=== PATIENT | male | born 1975 | race Caucasian/White ===

== ENCOUNTER → 2019-08-16 | Outpatient (CLI) | payer OTHER ==
[~2019-08-16] MED LIST: ALBU2.5V8 IH; COLC0.6T34 PO; NAPR-514 PO
--- NOTE | 2019-08-16 11:39 | KCIC ---
BRAIN W/O CONTRAST Date: 08/16/2019 10:15 AM Indication: Lightheaded, history of TIA Comparison: None. Technique: Multiplanar multisequence MRI of the brain was performed without intravenous contrast using the standard protocol. Findings: No acute infarct. No acute or chronic hemorrhage. The ventricles are normal in size and configuration without hydrocephalus. The scalp and calvarium are normal. The pituitary and sella are normal. No Chiari malformation. The visualized upper cervical spine is normal. The visualized orbits and globes are normal. The visualized paranasal sinuses are clear. The mastoid air cells are clear. Normal flow voids within the vertebral, basilar, and internal carotid arteries indicating patency. IMPRESSION: No acute intracranial process. Electronically signed by: Jerome Kingsley MD (08/16/2019 11:36 AM) [id number]
== END | disposition home or self-care (01) ==
LOC: KCIC MRI 09:36
PROVIDERS: ATTEND Psychiatry & Neurology Neurology with Special Qualifications in Child Neurology
DX: R42 Dizziness and giddiness (principal); Z86.73 Personal history of transient ischemic attack (TIA), and cerebral infarction without residual deficits
CPT/HCPCS: 70551

== ENCOUNTER → 2020-03-06 | Outpatient (CLI) | payer OTHER ==
--- NOTE | 2020-03-06 16:16 | RAD ---
Examination: Ultrasound left lateral thigh HISTORY: History of mass left lateral thigh COMPARISON: None available Findings/ impression: There is a 2.0 x 1.8 x 0.4 cm isoechoic focus identified in the soft tissue of the left lateral thigh likely a lipoma. Electronically signed by: Willie Greenfield MD (03/06/2020 4:13 PM) [id number]
== END ==
LOC: US 15:02
PROVIDERS: ATTEND Family Medicine
DX: R22.42 Localized swelling, mass and lump, left lower limb (principal)
CPT/HCPCS: 76881

== ENCOUNTER 2020-06-19 22:29 | Emergency (ER) | payer OTHER ==
[~2020-06-19] VITALS: Ht 185.4 cm; Wt 127.3 kg
--- NOTE | 2020-06-19 22:58 | PHYS DOC ---
Past Medical History Past Medical History: TIA Alcohol Use: Occasionally General Adult EDM: Chief Complaint: DIZZY/LIGHT HEADED HPI: HPI: Patient is a 45 year old male with a past medical history of TIA June 2019 presents for dizziness and heart palpitations. He states that around 9 PM he started to feel his heart racing, pulsing in his hands, lightheadedness, and a headache, so he took his blood pressure. He does not take his blood pressure every day. His blood pressure today was 170/102. He took half with Bystolic that he had left over from last year. He waited 30 minutes and recheck his blood pressure. He was still feeling lightheaded and had a feeling of his heart racing, his blood pressure was still elevated at 160/91 so he presented to the emergency department. He states that he currently is lightheaded, but has no other symptoms. He denies any vision changes, chest pain, shortness of breath, numbness or tingling anywhere. He states he had a full cardiac work-up and scans done in June 2019 when he was diagnosed with a TIA and everything was clear at that time. He saw his PCP 3 weeks ago and his blood pressure at that time was 120/70. Review of Systems: Review of Systems: Constitutional: Denies fever or chills. [] Eyes: Denies change in visual acuity. [] HENT: Denies nasal congestion or sore throat. [] Respiratory: Denies cough or shortness of breath. [] Cardiovascular: Positive palpitations, Denies chest pain or edema. [] GI: Denies abdominal pain, nausea, vomiting, bloody stools or diarrhea. [] : Denies dysuria. [] Musculoskeletal: Denies back pain or joint pain. [] Integument: Denies rash. [] Neurologic: Denies headache, focal weakness or sensory changes. Positive lightheadedness [] Endocrine: Denies polyuria or polydipsia. [] Lymphatic: Denies swollen glands. [] Psychiatric: Denies depression or anxiety. [] Heart Score: Risk Factors: Risk Factors: DM, Current or recent (<one month) smoker, HTN, HLP, family history of CAD, obesity. Risk Scores: Score 0 - 3: 2.5% MACE over next 6 weeks - Discharge Home Score 4 - 6: 20.3% MACE over next 6 weeks - Admit for Clinical Observation Score 7 - 10: 72.7% MACE over next 6 weeks - Early Invasive Strategies Allergies: Allergies: Allergies Coded Allergies Type Severity Reaction Last Updated Verified hydrocodone Allergy Severe Shortness of Air 09/09/14 Yes oxycodone Allergy Severe shortness of breath 09/09/14 Yes Physical Exam: PE: General: alert, no acute distress. Skin: warm, dry and intact. Head:: Normocephalic, atraumatic. Neck: Trachea midline. Eyes: EOMI, Normal conjunctiva, No drainage CARDIOVASCULAR: Regular rate and rhythm RESPIRATORY: No respiratory distress Back: Full range of motion. MUSCULOSKELETAL: Full range of motion of bilateral upper and lower extremities. NEUROLOGICAL: Alert and noted to person, place and time. No neurological deficits observed Psychiatric: Cooperative. Normal judgment EKG: EKG: [] EKG performed at 2239 heart rate [address] elevations no ST depressions no acute [place] Radiology/Procedures: Radiology/Procedures: [] Impression: Chest x-ray wet read heart mediastinum within normal limits no focal infiltrates no bony abnormalities no acute process Course & Med Decision Making: Course & Med Decision Making Pertinent Labs and Imaging studies reviewed. (See chart for details) [] Patient was evaluated for chief complaint. Work-up consisted of laboratory analysis and radiologic imaging and EKG. Results reviewed and discussed with patient. Blood pressure on exam was 160s systolic. Chest x-ray EKG labs within normal limits. Treatment included IV fluids. Patient was discharged home with instructions to follow-up with a primary care physician. [place] Disclaimer: [place] Disclaimer: This electronic medical record was generated, in whole or in part, using a voice recognition dictation system. Departure Departure Impression: Primary Impression: Palpitation Additional Impression: Hypertension Disposition: 01 DC HOME SELF CARE/HOMELESS Condition: STABLE Referrals: LIZETT CASTLE MD (PCP) Patient Instructions: Dizziness, Hypertension, Palpitations MAREK CARO I DO Jun 19, 2020 22:57
[2020-06-19 23:04] LABS: BASO % 0 % (0-3); EOS # 0.1 x10^3/uL (0.0-0.7); EOS % 1 % (0-3); HEMATOCRIT 44.2 % (39.0-53.0); HEMOGLOBIN 15.5 g/dL (13.0-17.5); LYMPH % 24 % (24-48); MEAN CORPUSCULAR HEMOGLOBIN 31 pg (25-35); MEAN CORPUSCULAR HGB CONC 35 g/dL (31-37); MEAN CORPUSCULAR VOLUME 89 fL (79-100); MONO # 0.9 x10^3/uL (0.0-1.1); MONO % 10 % (0-9); NEUT # 5.5 x10^3/uL (1.8-7.7); NEUT % 64 % (31-73); PLATELET COUNT 236 x10^3/uL (140-400); RED BLOOD COUNT 4.98 x10^6/uL (4.30-5.70); RED CELL DISTRIBUTION WIDTH 12.6 % (11.5-14.5); WHITE BLOOD COUNT 8.6 x10^3/uL (4.0-11.0)
[2020-06-19 23:14] LABS: CALCIUM 8.9 mg/dL (8.5-10.1); CREATININE 0.8 mg/dL (0.7-1.3); POTASSIUM 3.7 mmol/L (3.5-5.1)
[2020-06-19 23:20] LABS: TOTAL BILIRUBIN 0.3 mg/dL (0.2-1.0); TOTAL PROTEIN 7.9 g/dL (6.4-8.2)
--- NOTE | 2020-06-19 23:28 | EKG ---
[facility] [address] [place] [address] Test Date: 2020-06-19 Test Time: 22:39:49 Pat Name: CAMRYN BROWN Department: Room: Gender: M Electronics Assembler: : 1975 Requested By: MAREK CARO Order Number: [id number] Reading MD: Measurements Intervals [place] Rate: 88 P: 40 TX: 154 QRS: 42 QRSD: 98 T: 27 QT: 346 QTc: 422 Interpretive Statements SINUS RHYTHM NO SPECIFIC ECG ABNORMALITIES RI6.01 No previous ECG available for comparison
[2020-06-19] MEDS ORDERED: IV NORMAL SALINE 1000ML BAG 1,000 ML IV ONE (23:30)
[2020-06-20 01:03] VITALS: BP 122/82
--- NOTE | 2020-06-20 01:34 | RAD ---
Study: XR CHEST 1V Indication: Palpitations. Comparison: None. Findings: The cardiomediastinal silhouette and jonh are within normal limits. No localized airspace opacity, pl eural effusion or pneumothorax. Impression: No acute radiographic abnormality of the chest. Electronically signed by: SIVA SZYMANSKI MD (06/20/2020 1:31 AM) [facility]
== END 2020-06-20 01:09 | disposition home or self-care (01) ==
LOC: ER 22:29
DX: R00.2 Palpitations (principal); I10 Essential (primary) hypertension; R51.9 Headache, unspecified; Z86.73 Personal history of transient ischemic attack (TIA), and cerebral infarction without residual deficits; Z88.5 Allergy status to narcotic agent
CPT/HCPCS: 36415; 71045; 80053; 84484; 85025; 93005; 96360; 99285; J7030